=== PATIENT | female | born 1995 | race Caucasian/White ===

== ENCOUNTER 2022-12-03 22:37 | Emergency (ER) | payer SELFPAY ==
[2022-12-03 22:45] VITALS: BP 123/83; PULSE 84; RESP 18; TEMP 98.3; BMI 51.3
[2022-12-04 01:13] LABS: PH,URINE 5.5 (5.0-8.0); URINE APPEARANCE CLEAR; URINE BILIRUBIN NEGATIVE (NEGATIVE); URINE COLOR YELLOW; URINE GLUCOSE (UA) NEGATIVE (NEGATIVE); URINE KETONE TRACE (NEGATIVE); URINE LEUK ESTERASE NEGATIVE (NEGATIVE); URINE NITRITE NEGATIVE (NEGATIVE); URINE PROTEIN NEGATIVE (NEGATIVE)
[2022-12-04 01:16] LABS: EPI CELLS 28 /uL (0-25.1); HYALINE CASTS 1 /uL (0-3.1); URINE BACTERIA 70 /uL (0-1359); URINE WBC 13 /uL (0-25.8)
[2022-12-04 01:23] LABS: BASO % 0.6 % (0-2.0); EOS % 1.2 % (0-4.5); HEMATOCRIT 35.8 % (32.4-45.2); HEMOGLOBIN 11.3 GM/dL (10.7-15.3); LYMPH % 33.1 % (8-40); MCH 20.4 pg (25.7-33.7); MCHC 31.5 g/dl (32.0-36.0); MEAN CELL VOLUME 64.8 fl (80-96); MEAN PLT VOLUME 7.8 fl (7.5-11.1); NEUT % 59.1 % (42.8-82.8); PLATELET COUNT 374 10^3/uL (134-434); RBC 5.51 M/mm3 (3.60-5.2); WHITE BLOOD COUNT 10.5 K/mm3 (4.0-10.0)
[2022-12-04 01:25] LABS: HCG,QUALITATIVE URINE Negative
[2022-12-04 01:26] LABS: CHLORIDE 108 mmol/L (98-107); SODIUM 142 mmol/L (136-145)
[2022-12-04 01:29] LABS: ALBUMIN 3.4 g/dl (3.4-5.0); ANION GAP 8 MMOL/L (8-16); BLOOD UREA NITROGEN 14.2 mg/dL (7-18); CALCIUM 8.7 mg/dL (8.5-10.1); CO2 27 mmol/L (21-32); GLUCOSE,RANDOM 104 mg/dL (74-106); LIPASE 49 U/L (73-393)
[2022-12-04 01:32] LABS: CREATININE 0.8 mg/dL (0.55-1.3); SGOT/AST 23 U/L (15-37); SGPT/ALT 48 U/L (13-61)
[2022-12-04 01:34] LABS: BILIRUBIN,TOTAL 0.3 mg/dL (0.2-1); TOT PROT 7.3 g/dl (6.4-8.2)
[2022-12-04 01:35] LABS: ALK PHOS 77 U/L (45-117)
[2022-12-04 02:42] LABS: ANISOCYTOSIS 2+; MACROCYTOSIS 0; OVALOCYTE 2+
[2022-12-04 02:44] LABS: URINE RBC 70.7 /uL (0-23.9)
== END 2022-12-04 03:50 | disposition home or self-care (01) ==
LOC: JER 22:37
DX: R10.30 Lower abdominal pain, unspecified (principal); M54.50 Low back pain, unspecified; R35.0 Frequency of micturition; R11.0 Nausea; R42 Dizziness and giddiness
CPT/HCPCS: 36415; 76830-TC; 80053; 81003; 83690; 84702; 84703; 85025; 87086; 99284-25

== ENCOUNTER 2023-10-06 22:56 | Emergency (ER) | payer OTHER ==
[2023-10-06 23:03] VITALS: BP 127/84; PULSE 84; RESP 18; TEMP 98.7; BMI 48.5
[2023-10-07 00:18] LABS: BASO % 0.3 % (0-2.0); EOS % 1.3 % (0-4.5); HEMATOCRIT 30.8 % (32.4-45.2); HEMOGLOBIN 10.1 GM/dL (10.7-15.3); LYMPH % 24.7 % (8-40); MCH 22.6 pg (25.7-33.7); MCHC 32.7 g/dl (32.0-36.0); MEAN CELL VOLUME 68.9 fl (80-96); MEAN PLT VOLUME 7.8 fl (7.5-11.1); MONO % 6.1 % (3.8-10.2); NEUT % 67.6 % (42.8-82.8); PLATELET COUNT 338 10^3/uL (134-434); RBC 4.46 M/mm3 (3.60-5.2); RDW 16.5 % (11.6-15.6); URINE APPEARANCE CLEAR; URINE BILIRUBIN NEGATIVE (NEGATIVE); URINE COLOR YELLOW; URINE GLUCOSE (UA) NEGATIVE (NEGATIVE); URINE KETONE NEGATIVE (NEGATIVE); URINE LEUK ESTERASE NEGATIVE (NEGATIVE); URINE NITRITE NEGATIVE (NEGATIVE); URINE PROTEIN NEGATIVE (NEGATIVE); URINE UROBILINOGEN 0.2 mg/dL (0.2-1.0); WHITE BLOOD COUNT 11.2 K/mm3 (4.0-10.0)
[2023-10-07 00:25] LABS: INR 0.97 (0.83-1.09); PROTHROMBIN TIME (PATIENT) 11.2 SEC (9.7-13.0)
[2023-10-07 00:28] LABS: ACTIVATED PTT 26.9 SECONDS (25.2-36.5)
[2023-10-07 00:47] LABS: CALCIUM 9.1 mg/dL (8.5-10.1)
[2023-10-07 00:48] LABS: ALBUMIN 2.8 g/dl (3.4-5.0); BLOOD UREA NITROGEN 6.5 mg/dL (7-18)
[2023-10-07 00:50] LABS: CREATININE 0.5 mg/dL (0.55-1.3)
[2023-10-07 00:52] LABS: BILIRUBIN,TOTAL 0.3 mg/dL (0.2-1); TOT PROT 6.5 g/dl (6.4-8.2)
== END 2023-10-07 01:29 | disposition home or self-care (01) ==
LOC: JER 22:56
DX: O20.9 Hemorrhage in early pregnancy, unspecified (principal); Z3A.19 19 weeks gestation of pregnancy
CPT/HCPCS: 36415; 76817-TC; 80053; 81003; 84702; 85025; 85610; 85730; 86850; 86900; 86901; 99284-25